=== PATIENT | female | born 1955 | race Caucasian/White ===

== ENCOUNTER 2025-04-06 10:53 | Outpatient (OUT) | payer MEDICARE, SELFPAY ==
--- OUTSIDE RECORDS SUMMARY | 2025-04-05 10:00 | XMS_ITS | Encounter Summary ---
Author Organization [facility] Address [address] [id number] Care Team Providers Care Window Caser Name Role Phone Isaias Small Primary Care Provider [phone] Source Comments In the event this information is protected by the Federal Confidentiality of Alcohol and Drug AbusePatient Records regulations: The Federal rules restrict any use of the information to criminally investigate or prosecute any alcohol or drug abuse patient.[facility] Reason for Visit * Reason Comments Follow Up Encounter Details Date Type Department Care Team (Latest Contact Info) Description 04/05/2025 10:00 AM EDT [facility] Colorectal Surgery [address] [id number] Loly Ribeiro APRN.[facility] [address] [facility], [facility] [place] [address] Dysuria (Primary Dx); Colostomy status (HCC); Encounter for change or removal of surgical wound dressing; Urinary tract infection without hematuria, site unspecified Social History Tobacco Use Types Packs/Day Years Used Date Smoking Tobacco: Never Smokeless Tobacco: Never Alcohol Use Standard Drinks/Week Comments Yes 0 (1 standard drink = 0.6 oz pur e alcohol) ocasionally [facility] Utilities Answer Date Recorded In the past 12 months has th e electric, gas, oil, or water company threatened to shut off services in your home? No 03/16/2025 Hunger Vital Sign Answer Date Recorded Within the past 12 months, y ou worried that your food would run out before you got the money to buy more. Never true 03/16/20 25 Within the past 12 months, t he food you bought just didn't last and you didn't have money to get more. Never true 03/16/2025 PRAPARE - Transportation Answer Date Re corded In the past 12 months, has l ack of transportation kept you from medical appointments or from getting medications? No 03/2025 In the past 12 months, has l ack of transportation kept you from meetings, work, or from getting things needed for daily living? No 03/16/2025 Housing Stability Vital Sign Answer Jose e Recorded In the last 12 months, was t here a time when you were not able to pay the mortgage or rent on time? No 03/16/2025 Number of Times Moved in the Last Year Not on fi le 03/16/2025 At any time in the past 12 m [facility], were you homeless or living in a retirement (including now)? No 03/16/2025 Area Deprivation Index Answer Date John rded National Score (1-100), lower number is lower ri sk 91 10/24/2024 State Score (1-10), lower number is lower risk 8 10/24/2024 Data from: https://www.neighborhoodatlas.medicine.[facility].edu/. Last address used for calculation [address] 10/24/2024 Comments No Sex and Gender Information Value Date Recorded Sex Assigned at Not on file Legal Sex Female 8:13 AM EST Gender Identity Not on file Sexual Orientation Not on file documented as of this encounter Patient Instructions * Patient Instructions* Loly Ribeiro APRN.RESEARCH AND EVALUATION MANAGER - 04/05/2025 4:11 PM EDT We discussed your urinary symptoms: - You reported symptoms of a possible urinary tract infection (UTI), including increased frequency of urination and burning. - I prescribed Macrodantin (Nitrofurantoin) 100 mg capsules. Please take 1 capsule twice daily for 5 days (10 capsules total). Be sure to take this medication with food. - I placed an order for a urinalysis (UA) in your MyChart. Please complete the UA before starting the antibiotics. After providing the urine sample, you may begin taking the Macrodantin. - The urinalysis results should be sent to our office. If the lab requires a fax number, they can send the results to [phone]. - If you experience worsening symptoms or do not feel better after completing the antibiotics, please contact our office. We discussed your wound care: - You mentioned that your wound near your belly button has improved, decreasing in depth from 4 cm to 3 cm. - Home health is monitoring your wound to ensure it does not become infected. - If additional home health visits are needed, your home health provider can request more visits and submit the necessary paperwork to your insurance. If they require a medical necessity statement from me, they can fax the request to [phone]. We discussed your stoma: - Your stoma looks healthy, and you reported emptying your colostomy bag twice daily. - Please continue monitoring your stoma and let us know if you notice any changes or concerns. Next steps: - Your prescription for Macrodantin has been sent to [facility] on [facility] in [place], [place]. - The urinalysis order has been uploaded to your MyChart. If you need assistance printing the orderor sending it to a lab, please let us know. - If you encounter any issues with the lab or need a better-quality copy of the order, message me through [employer], and I can reprint and fax it to the lab. Please let us know if you have any additional concerns or if your symptoms change. All the best, LOLY RIBEIRO APRN.CNP documented in this encounter Progress Notes * Loly Ribeiro APRN.CNP - 04/05/2025 9:56 AM EDT Images from the original note were not included. COLORECTAL SURGERY VIRTUAL VISIT FOLLOW UP Recording using [employer] software for draft documentation of the visit was discussed with the patient/authorized client service representative; all questions welcomed and answered. Patient/authorized client service representative agreed to proceed I have communicated my name and active licensure. The patient's identity and physical location wereverified at the time of this visit. Either the patient or their legal client service representative has been informed of the risks and benefits of -- and alternatives to -- treatment through a remote evaluation andconsents to proceed with the evaluation remotely. She cannot connect to video during later part of our visit. I had a virtual visit with Mrs. Mckoy today for follow up of hospitalization. ED for SBO 03/15/2025 UPDATED HISTORY: Negra Mckoy is a 69 year old female who presented to ED on 03/15/25 with SBO, managed by Dr. Myers. Adnexal mass s/p hysterectomy 07/20/24 c/b colon perf s/p ex lap, partial bowel resection, colostomy (07/25/24) complicated by recurrent pelvic abscesses, with IR drains, most recently removed in February. She feels as if she has UTI, more frequency and dysuria. Was on Augmentin. Colostomy active in AM, empties twice daily. She is currently under home health care for a healing wound near her umbilicus, which has improved from 4 cm to 3 cm in depth. She is requesting additional home health visits to monitor the wound andprevent infection. ROS: Genitourinary: (+) urinary frequency, (+) dysuria , no fever, chills, n/v PHYSICAL FINDINGS OF NOTE: observed stoma pink and viable to left upper abdomen with fresh pouch application pleasant and cooperative. Assessment Assessment & Diagnosis: Negra Mckoy is a 69 year old female Adnexal mass s/p hysterectomy 07/20/24 c/b colon perf s/pex lap, partial bowel resection, colostomy (07/25/24) complicated by recurrent pelvic abscesses, with IR drains here for follow up after hospitalization for sbo on 03/15/25. Data Reviewed: Tests & Documents Reviewed/ordered: Review of prior notes from ED notes Review of prior operative reports I have discussed Negra Mckoy's treatment plan and/or results with pt. Treatment plan: 1. Dysuria (R30.0) 2. Urinary tract infection without hematuria, site unspecified (N39.0) Acute dysuria and increased urinary frequency suggest a recurrent UTI; prior UTI treated with amoxicillin during recent hospitalization. - Ordered urinalysis with reflex to culture; instructed patient to obtain specimen prior to starting antibiotics. - Start Macrodantin 100 mg PO BID for 5 days; instructed to take with food. - Provided instructions for obtaining urinalysis and starting antibiotics after specimen collection. 3. Colostomy status (HCC) (Z93.3) Colostomy site visualized via video; stoma appears healthy with no signs of infection or complications. - Continue current colostomy care. 4. Encounter for change or removal of surgical wound dressing (Z48.01) Surgical wound near the umbilicus is healing, with depth reduced from 4 cm to 3 cm; home health is providing wound care and monitoring for infection. - Continue home health wound care. - Provided contact information for home health to request additional visits if needed. Risk of morbidity, mortality and/or complications of treatment plan: carlos a I spent a total of 25 minutes on the date of the service which included preparing to see the patient, [id number] patient care, completing clinical documentation, obtaining and/or reviewing separately obtained history, performing a medically appropriate examination, counseling and educating the pat ient/family/caregiver, ordering medications, tests, or procedures, and communicating results to thepatient/family/caregiver. LOLY RIBEIRO APRN.CNP [facility] [place] Colorectal Surgery [facility] [address] [place] [address] documented in this encounter Plan of Treatment Scheduled Orders Name Type Priority Associated Diagnoses Orde r Schedule URINALYSIS, WITH MICROSCOPIC Lab Routine Dysuria Expected: 04/05/2025, Expires: 07/05/2025 documented as of this encounter Visit Diagnoses Diagnosis Dysuria- Primary Colostomy status (HCC) Colostomy status Encounter for change or removal of surgical wound dressing Urinary tract infection without hematuria, site unspecified documented in this encounter Care Teams Window Caser Relationship Specialty Start Date End Date Isaias Small DO [address] [place] [address] PCP - General Family Medicine 01/02/16 documented as of this encounter
--- OUTSIDE RECORDS SUMMARY | 2025-04-06 11:08 | XMS_ITS | Encounter Summary ---
Author Organization [facility] Address [address] [place] [address] Care Team Providers Care Customer Marketing Intern Name Role Phone Isaias Small Primary Care Provider [phone] Source Comments In the event this information is protected by the Federal Confidentiality of Alcohol and Drug AbusePatient Records regulations: The Federal rules restrict any use of the information to criminally investigate or prosecute any alcohol or drug abuse patient.[facility] Encounter Details Date Type Department Care Team (Late st Contact Info) Description 01/18/2025 [place] [address] Provider, [facility] Regional Geodetic Advisor Enrollment Social History Tobacco Use Types Packs/Day Years Used Date Smoking Tobacco: Never Smokeless Tobacco: Never Alcohol Use Standard Drinks/Week Comments Yes 0 (1 standard drink = 0.6 oz pur e alcohol) ocasionally [facility] Utilities Answer Date Recorded In the past 12 months has e electric, gas, oil, or water company threatened to shut off services in your home? No 11/09/2024 Hunger Vital Sign Answer Date Recorded Within the past 12 months, y ou worried that your food would run out before you got the money to buy more. Never true 11/10/19 25 Within the past 12 months, t he food you bought just didn't last and you didn't have money to get more. Never true 11/09/2024 PRAPARE - Transportation Answer Date Re corded In the past 12 months, has l ack of transportation kept you from medical appointments or from getting medications? No 10/2024 In the past 12 months, has l ack of transportation kept you from meetings, work, or from getting things needed for daily living? No 11/09/2024 Housing Stability Vital Sign Answer Jose e Recorded In the last 12 months, was t here a time when you were not able to pay the mortgage or rent on time? No 11/09/2024 Number of Times Moved in the Last Year Not on fi le 11/09/2024 At any time in the past 12 m [facility], were you homeless or living in a fci (including now)? No 11/09/2024 Area Deprivation Index Answer Date John rded National Score (1-100), lower number is lower ri sk 91 10/24/2024 State Score (1-10), lower number is lower risk 8 10/24/2024 Data from: https://www.neighborhoodatlas.medicine.[facility].edu/. Last address used for calculation [address] 10/24/2024 Comments No Sex and Gender Information Value Date Recorded Sex Assigned at Not on file Legal Sex Female 8:13 AM EST Gender Identity Not on file Sexual Orientation Not on file documented as of this encounter Plan of Treatment Not on file documented as of this encounter Visit Diagnoses Not on filedocumented in this encounter Care Teams Customer Marketing Intern Relationship Specialty Start Date End Date Isaias Small DO [address] [place] [id number] PCP - General Family Medicine 01/02/16 documented as of this encounter
--- OUTSIDE RECORDS SUMMARY | 2025-04-06 11:08 | XMS_ITS | Encounter Summary ---
Author Organization [facility] Address [address] [place] [address] Care Team Providers Care Poultry Offal Icer Name Role Phone Isaias Small Primary Care Provider [phone] Source Comments In the event this information is protected by the Federal Confidentiality of Alcohol and Drug AbusePatient Records regulations: The Federal rules restrict any use of the information to criminally investigate or prosecute any alcohol or drug abuse patient.[facility] Encounter Details Date Type Department Care Team (Latest Contact Info) Description 03/29/2025 Travel Social History Tobacco Use Types Packs/Day Years Used Date Smoking Tobacco: Never Smokeless Tobacco: Never Alcohol Use Standard Drinks/Week Comments Yes 0 (1 standard drink = 0.6 oz pur e alcohol) ocasionally [facility] Utilities Answer Date Recorded In the past [...] any time in the past 12 m [facility], were you homeless or living in a intermediate (including now)? No 03/16/2025 Area Deprivation Index Answer Date John rded National Score (1-100), lower number is lower ri sk 91 10/24/2024 State Score (1-10), lower number is lower risk 8 10/24/2024 Data from: https://www.neighborhoodatlas.medicine.[facility].edu/. Last address used for calculation [address] [...] on filedocumented in this encounter Care Teams Poultry Offal Icer Relationship Specialty Start Date End Date Isaias Small DO [address] [place] [phone] PCP - General Family Medicine 01/02/16 documented as of this encounter
--- OUTSIDE RECORDS SUMMARY | 2025-04-06 11:08 | XMS_ITS | Encounter Summary ---
Author Organization [facility] Address [facility] [place] [address] Care Team Providers Care Heel Reducer Name Role Phone Pcp, No Primary Care Provider Isaias Christianson DO Primary Care Provider [phone] Source Comments In the event this information is protected by the Federal Confidentiality of Alcohol and Drug AbusePatient Records regulations: The Federal rules restrict any use of the information to criminally investigate or prosecute any alcohol or drug abuse patient.[facility] Encounter Details Date Type Department Care Team (Late st Contact Info) Description 07/03/2008 [facility] Orthopa[facility] [address] [address] Pee Davies PA-C [address] [place] [address] Social History Tobacco Use Types Packs/Day Years Used Date Smoking Tobacco: Never Alcohol Use Standard Drinks/Week Comments Not Asked 0 (1 standard drink = 0.6 oz pur e alcohol) Comments No Sex and Gender Information Value Date Recorded Sex Assigned at Not on file Legal Sex Female 8:13 AM EST Gender Identity Not on file Sexual Orientation Not on file documented as of this encounter Plan of Treatment Not on file documented as of this encounter Visit Diagnoses Not on filedocumented in this encounter Care Teams Heel Reducer Relationship Specialty Start Date End Date Pcp, No PCP - General 06/22/08 01/06/09 Isaias Small DO [address] [place] [address] PCP - General Family Medicine 01/02/16 documented as of this encounter
--- OUTSIDE RECORDS SUMMARY | 2025-04-06 11:08 | XMS_ITS | Encounter Summary ---
Author Organization [facility] Address [address] [place] [address] Care Team Providers Care Director Of Global Marketing Name Role Phone Isaias Small Primary Care Provider [phone] Source Comments In the event this information is protected by the Federal Confidentiality of Alcohol and Drug AbusePatient Records regulations: The Federal rules restrict any use of the information to criminally investigate or prosecute any alcohol or drug abuse patient.[facility] Encounter Details Date Type Department Care Team (Late st Contact Info) Description 01/18/2025 GI Preprocedure Call Gastroenterology [address] [place] [address] Linda King, MAGALIE Social History Tobacco Use Types Packs/Day Years Used Date Smoking Tobacco: Never Smokeless Tobacco: Never Alcohol Use Standard Drinks/Week Comments Yes 0 (1 standard drink = 0.6 oz pur e alcohol) ocasionally [facility] Utilities Answer Date Recorded In the past [...] any time in the past 12 m [facility], were you homeless or living in a prison (including now)? No 11/09/2024 Area Deprivation Index Answer Date John rded National Score (1-100), lower number is lower ri sk 91 10/24/2024 State Score (1-10), lower number is lower risk 8 10/24/2024 Data from: https://www.neighborhoodatlas.medicine.[facility].edu/. Last address used for calculation [address] 10/24/2024 Comments No Sex and Gender Information Value Date Recorded Sex Assigned at Not on file Legal Sex Female 8:13 AM EST Gender Identity Not on file Sexual Orientation Not on file documented as of this encounter Nursing Notes * Linda King, MAGALIE - 01/18/2025 11:53 AM EDT GI Pre-Procedure Spoke with patient: Yes Confirmed date scheduled and patient report time: Yes Procedure Planned:Colonoscopy with or without biopsies based on clinical findings Is the patient on blood thinners?no Procedure Instructions given to patient: Yes, and they verbalized their understanding of instructions given Patient instructed to take prescribed preparation prior to procedure:Yes, and they verbalized theirunderstanding of instructions given Patient instructed to have family/friend present for procedure transport home:Patient/patient support representative was told that if they do not have a responsible adult accompany them to their procedure; and remain in the endoscopy area until they are discharged; that their procedure cannot be done with s edation or anesthesia and may be cancelled. and They verbalized their understanding and agree to have a responsible adult accompany the patient to their procedure and remain in the endoscopy area. Any barriers to Patient learning: Patient/Patient Heat Sealing Machine Operator responded appropriately on phone. Type of instruction given: Verbal by telephone contact. Linda King RN documented in this encounter Plan of Treatment Not on file documented as of this encounter Visit Diagnoses Not on filedocumented in this encounter Care Teams Director Of Global Marketing Relationship Specialty Start Date End Date Isaias Small DO [address] [place] [phone] PCP - General Family Medicine 01/02/16 documented as of this encounter
--- OUTSIDE RECORDS SUMMARY | 2025-04-06 11:08 | XMS_ITS | Clinical Summary ---
Author Organization [facility] Address [address] [facility] [address] [place] [address] Care Team Providers Care Policy Writer Name Role Phone Grace Kenyon PA-C Primary Care Provide r Lillian Mays MD Unavailable Lizz Choudhury RN Unavailable Unava ilable Allergies Active Allergy Reactions Criticality Noted Date Comments Scopolamine Rash Medium 07/12/2024 Placed behind ear and developed a rash Medications losartan (COZAAR) 100 mg Oral Tablet Take 1 tablet every day by oral route. 2 Active hydroCHLOROthia zide (HYDRODIURIL) 25 mg Oral Tablet Take 2 Tablets (50 mg total) by mouth Once a day 2 Active buPROPion (WELLBUTRIN XL) 150 mg extended release 24 hr tablet Take 1 Tablet (150 mg total) by mouth Once a day 4 Active rosuvastatin (CRESTOR) 20 mg Oral Tablet Take 1 Tablet (20 mg total) by mouth Once a day 4 Active ZINC ORALIndications :supplement Take 1 Each by mouth Once a day Indications: supplement 4 Active glucosam/yolande-c ol.cplx/D3/C/Mn (AKFX-MBRZQG-ZV JJGMXF-A9-V-MN ORAL)Indication s:supplement Take 1 Each by mouth Once a day Indications: supplement 4 Active ondansetron (ZOFRAN) 4 mg Oral Tablet Take 1 Tablet (4 mg total) by mouth Every 8 hours as needed for Nausea/Vomiting 15 Tablet 07/21/2024 11:42 AM EST 4 Active Additional Information Patient not taking.Reported on 07/27/2024 HYDROcodone-stephanie taminophen (NORCO) 5-325 mg Oral Tablet Take 1 Tablet by mouth Every 4 hours as needed 5 Tablet 07/21/2024 11:42 AM EST 4 Active Additional Information Patient not taking.Reason: Other, Informant: Patient, Reported on 08/08/2024 cyclobenzaprine (FLEXERIL) 5 mg Oral Tablet Take 1 Tablet (5 mg total) by mouth Every 8 hours as needed for Muscle spasms 15 Tablet 08/01/2024 9:22 AM EST Active ferrous sulfate (FERATAB) 324 mg (65 mg iron) Oral Tablet, Delayed Release (E.C.) Take 1 Tablet (324 mg total) by mouth Every other day 30 Tablet 08/01/2024 9:22 AM EST Active docusate sodium (COLACE) 100 mg Oral CapsuleIndicati ons:constipatio n Take 100 mg by mouth Once per day as needed for Constipation. Indications: constipation Active Active Problems Problem Noted Date Diagnosed Date Post-operative wound abscess 07/25/2024 Post-operative state 07/20/2024 Pre-op evaluation 07/10/2024 SOB (shortness of breath) on exertion 07/10/2024 Hypertension 07/10/2024 Hyperlipidemia 07/10/2024 Gastroesophageal reflux disease 07/10/2024 Obesity 07/10/2024 Pelvic mass 07/10/2024 Encounters Date Type Department Care Team Description 01/08/2025 3:43 PM EDT - 01/08/2025 11:59 PM EDT Hospital Encounter [address] [address] Grace Kenyon PA-C Discharge Disposition: HOME PATIENT FAMILY MEMBER OTHER from Last 3 Months Family History Medical History Relation Name Comments No Known Problems Brother No Known Problems Daughter No Known Problems Father No Known Problems Maternal Aunt No Known Problems Maternal Grandfather No Known Problems Maternal Grandmother No Known Problems Maternal Uncle Cervical Cancer Mother No Known Problems Other No Known Problems Paternal Aunt No Known Problems Paternal Grandfather No Known Problems Paternal Grandmother No Known Problems Paternal Uncle No Known Problems Sister No Known Problems Son Relation Name Status Comments Brother Daughter Father Maternal Aunt Maternal Grandfather Maternal Grandmother Maternal Uncle Mother Other Paternal Aunt Paternal Grandfather Paternal Grandmother Paternal Uncle Sister Son Social History Tobacco Use Types Packs/Day Years Used Date Smoking Tobacco: Never Smokeless Tobacco: Never Tobacco Cessation:Counseling Given: Not Answered Alcohol Use Standard Drinks/Week Comments Yes 0 (1 standard drink = 0.6 oz pur e alcohol) occ OASIS D0700: Social Isolation Answer Da te Recorded Frequency of experiencing loneliness or isolatio n Never 08/21/2024 OASIS A1250: Transportation Answer Date Recorded Lack of Transportation (Medical) No 08/21/2024 Lack of Transportation (Non-Medical) No 08/21/2024 Patient Unable or Declines to Respond No 08/21/2024 OASIS B1300: Health Literacy Answer Jose e Recorded Frequency of needing help to read materials from doctor or pharmacy Never 08/21/2024 Social Connections Answer Date Recorded How often do you see or talk to people that you care about and feel close to? (For example: talking to friends on the phone, visiting friends or family, going to temple or club meetings) 5 or more times a week 07/31/2024 Health Literacy Answer Date Recorded How often do you have a prob ziggy understanding what is told to you about your medical condition? Never 07/31/2024 Comments No Sex and Gender Information Value Date Recorded Sex Assigned at Not on file Legal Sex Female 5:25 PM EST Gender Identity Not on file Sexual Orientation Not on file Last Filed Vital Signs Vital Sign Reading Time Taken Comments Blood Pressure 138/86 08/21/2024 12:45 PM EST Pulse 83 08/21/2024 12:45 PM EST Temperature 36.2 C (97.1 F) 08/21/2024 12:45 PM EST Respiratory Rate 18 08/21/2024 12:45 PM EST Oxygen Saturation 95% 08/21/2024 12:45 PM EST Inhaled Oxygen Concentration - - Weight 90.3 kg (199 lb 1.2 oz) 08/08/2024 12:57 PM EST Height 170.2 cm (5' 7 ) 08/08/2024 12:57 PM EST Body Mass Index 31.18 08/08/2024 12:57 PM EST Plan of Treatment Upcoming Encounters Date Type Department Care Team (Late st Contact Info) Description 06/08/2025 3:30 PM EDT Appointment Imaging Center, [facility] [address] [place] [address] Health Maintenance Due Date Last Done Comments Hepatitis C screening 1955 Pneumococcal Vaccination, Ag e 50+ (1 of 1 - PCV) 2005 RSV Adult 60+ or ( 1 - Risk 60-74 years 1-dose series) 2015 Covid-19 Vaccine ( - season) 2024 Medicare Annual Wellness Vis it - Calendar Year Insurers 08/09/2024 [facility] [employer] BILLING SPEC Capture Hidden 03/09/2025 Influenza Vaccine (#1) 2025 Depression Screening 07/26/2025 07/26/2024 Breast Cancer Screening 06/08/2026 06/08/2024, 10/20 Adult Tdap-Td (2 - Td or Tdap) 01/13/2034 01/14/2024 , 01/13/2024 Osteoporosis screening 02/03/2034 02/04/2024 Colonoscopy 07/12/2034 07/12/2024 Shingles Vaccine Completed 11/22/2023, 07/12/2023 Procedures Procedure Name Priority Date/Time Associated Diagnosis Comments WOUND, SUPERFICIAL/NON-STERI LE SITE, AEROBIC CULTURE AND GRAM STAIN Routine 01/08/2025 3:47 PM EDT Disruption or dehiscence of closure of internal operation (surgical) wound of abdominal wall muscle or fascia, initial encounter COLONOSCOPY Routine 07/12/2024 9:36 AM EST MAMMO BILATERAL SCREENING W SHEELA-ADDL VIEWS/BREAST US REQ BY RAD Routine 06/08/2024 3:40 PM EDT Encounter for screening mammogram for malignant neoplasm of breast DEXA BONE DENSITOMETRY Routine 02/04/2024 1:23 PM EDT Encounter for screening for osteoporosis Asymptomatic menopausal state from Last 3 Months or Most Recently Relevant to Health Maintenance Results * (ABNORMAL) WOUND, SUPERFICIAL/NON-STERILE SITE, AEROBIC CULTURE AND GRAM STAIN (01/08/2025 3:47 PM EDT) WOUND CULTURE 1+ Rare Multiple Gram Positive and Gram Negative Organisms(A) 01/12/2025 8:58 AM EDT [facility] GRAM STAIN No PMNs 01/12/2025 8:58 AM EDT [facility] GRAM STAIN No Organisms Seen 01/12/2025 8:58 AM EDT [facility] Other SPECIMEN FROM WOUND / Unknown 01/08/2025 3:47 PM EDT 01/09/2025 6:40 PM EDT Grace Kenyon PA-C LAB-MICROBIOLOGY - GE NERAL ORDERABLES Final Result Performing Organization Address City/State/[facility] Co de Phone Number [facility] [place] [address] * COLONOSCOPY (07/12/2024 9:36 AM EST) 07/12/2024 9:36 AM EST Narrative [facility] ENDOPRO - 07/12/2024 10:16 AM EST Procedure Date: 07/12/2024 Patient Name: Negra Mckoy Date of : 1955 Admit Type: Outpatient Room: [facility] 03 Gender: Female Age: 69 Attending MD: NEY HARP DO, Instrument Name: [id number] Procedure: Colonoscopy Providers: NEY HARP DO, Rocio Larson, DONNA (Anesthesia Staff) Referring MD: Grace Kenyon Indications: Abnormal CT of the GI tract Medicines: Monitored Anesthesia Care Procedure: Pre-Anesthesia Assessment: - Prior to the procedure, a History and Physical was performed, and patient medications, allergies and sensitivities were reviewed. The patient's tolerance of previous anesthesia was reviewed. - The risks and benefits of the procedure and the sedation options and risks were discussed with the patient. All questions were answered and informed consent was obtained. After I obtained informed consent, the scope was passed under direct vision. Throughout the procedure, the patient's blood pressure, pulse, and oxygen saturations were monitored continuously. The Colonoscope was introduced through the anus with the intention of advancing to the cecum. The scope was advanced to the rectum before the procedure was aborted. Medications were not given. The colonoscopy was extremely difficult due to a tortuous colon. Successful completion of the procedure was aided by changing the patient to a supine position. Findings: The perianal and digital rectal examinations were normal. Pertinent negatives include normal sphincter tone, no palpable rectal lesions and no anal lesion or abnormality. The recto-sigmoid colon was grossly tortuous. Advancing the scope required changing the patient to a supine position. Advancing the scope required withdrawing the scope and replacing with the endoscope. Estimated Blood Loss: Estimated blood loss: none. Complications: No immediate complications. Estimated blood loss: None. Impression: - Tortuous colon. - No specimens collected. Recommendation: - Patient has a contact number available for emergencies. The signs and symptoms of potential delayed complications were discussed with the patient. Return to normal activities tomorrow. Written discharge instructions were provided to the patient. - Discharge patient to home (ambulatory). - Repeat colonoscopy in 1 year for screening purposes. Procedure Code(s): --- Professional --- 24318, 53, Colonoscopy, flexible; diagnostic, including collection of specimen(s) by brushing or washing, when performed (separate procedure) CPT copyright 2022 [employer]. All rights reserved. The codes documented in this report are preliminary and upon carbonation equipment operator review may be revised to meet current compliance requirements. Ney BRYANT DO 07/12/2024 10:16:29 AM This report has been signed electronically by:NEY HARP DO Number of Addenda: [address] [place] [id number] Ney Harp DO ENDOPRO GI INTERFACE Final R esult [facility] * MAMMO BILATERAL SCREENING W SHEELA-ADDL VIEWS/BREAST US REQ BY RAD (06/08/2024 3:40 PM EDT) Anatomical Region Laterality Modality Breast, WTZ, [facility], CCM, UHC, PVH, STJ, RMH, BRX, SMR, BMC, JMC, JOANNA, UTN, WHL, HRS, BRN, PRN Bilateral Mammography Impressions 06/08/2024 6:59 PM EDT Follow up mammogram in 1 year is recommended for both breasts. BI-RADS ATLAS category (overall): 2 - Benign A negative x-ray should not delay biopsy if a dominant or clinically suspicious mass is present. 4-8% of cancers are not identified by x-ray. A negative report may reinforce clinical impression. Adenosis and dense breasts may obscure an underlying neoplasm. False positive reports average 6-10%. [facility] [address] Radiologist location ID: [id number] Narrative 06/08/2024 6:59 PM EDT Computer aided detection (CAD) technology has been applied to the standard (CC and MLO) images. 3D tomosynthesis and 2D images were acquired and reviewed. FILMS COMPARED: Compared to: 06/07/2023 US BREAST LEFT-ADDL VIEWS/BREAST US REQ BY RAD, 11/30/2022 US BREAST LEFT-ADDL VIEWS/BREAST US REQ BY RAD, 11/30/2022 US BREAST RIGHT-ADDL VIEWS/BREAST US REQ BY RAD, 10/20/2022 MM GRACE BUS SCREEN MAMMOGRAM, 08/21/2021 EXTERNAL MAMMOGRAM COMPARISON IMAGES, 08/19/2020 EXTERNAL MAMMOGRAM COMPARISON IMAGES, and 07/18/2019 EXTERNAL MAMMOGRAM COMPARISON IMAGES HISTORY: Procedure: MAMMO BILATERAL SCREENING W SHEELA-ADDL VIEWS/BREAST US REQ BY RAD Reason for exam: Encounter for screening mammogram for malignant neoplasm of breast FINDINGS: The breasts are heterogeneously dense, which may obscure small masses. Bilateral There is no evidence of suspicious masses, calcifications, or other abnormal findings. Similar oval asymmetries are present in both breasts most consistent with multiple benign cysts. Few scattered benign-appearing calcifications are again seen. us Grace Kenyon PA-C MAMMO ORDERABLES Arleth l Result * DEXA BONE DENSITOMETRY (02/04/2024 1:23 PM EDT) Anatomical Region Laterality Modality Dexa, WTZ, BONE, [facility], CCM, U HC, PVH, STJ, RMH, BRX, SMR, BMC, JMC, JOANNA, UTN, WHL, HRS Other Impressions 02/04/2024 1:30 PM EDT Normal. Radiologist location ID: [id number] Narrative 02/04/2024 1:30 PM EDT Table formatting from the original result was not included. Region BMD (g/cm ) Young Adult T-score Age Matched Z-score AP Spine 1.567 3.0 4.7 Left Hip total 1.126 0.9 2.3 Left Hip Femoral Neck 1.031 -0.1 1.6 Right Hip total 1.155 1.2 2.6 Right Hip Femoral Neck 1.075 0.3 1.9 N/A Forearm N/A Forearm World Health Organization (WHO) criteria for post-menopausal, Women: Normal: T-score at or above -1 SD Osteopenia: T-score between -1 and -2.5 SD Osteoprosis: T-score at or below -2.5 SD FRAX* Results: 10-Year Probability of Fracture Major Osteoporotic Fracture 6.8% Hip Fracture 0.3% *FRAX is a trademark of the [employer]'s [employer] for Metabolic Bone Disease, a World Health Organization (WHO) Collaborating [place]. 1-The 10-year probability of fracture may be lower than reported if the patient has received treatment. 2-Major Osteoporotic Fracture: Clinical Spine, Forearm, Hip or Shoulder. Although these definitions are necessary to establish the prevalence of Osteoporosis, they should not be used as the sole determinant of treatment decisions. New International Society of Clinical Densitometry (ISCD) guidelines for premenopausal patients under the age of 50, specify that the T-Score will no longer be generated. The impression will be based on the reference curve, which is derived from the BMD. us Grace Kenyon PA-C MAMMO ORDERABLES Arleth l Result from Last 3 Months or Most Recently Relevant to Health Maintenance Insurance [employer]VANTAGE [employer] MEDICARE ADVANTAGE Advance Directives For more information, please contact: [phone] * Full Code (Latest Code Status on File) Date Activated Date Inactivated Comments 08/04/2024 6:20 PM * FULL CODE: ATTEMPT RESUSCITATION/CPR Date Activated Date Inactivated Comments 07/25/2024 7:55 AM 08/01/2024 2:51 PM Patient wi shes for full ICU level care including advanced airway interventions / mechanical ventilation. In the event of pulseless cardiac arrest, patient consents to ACLS (advanced cardiac life support) to attempt resuscitation. IE - Consents to chest compressions, life support including intubation, mechanical ventilation, defibrillation/cardioversion as indicated. * FULL CODE: ATTEMPT RESUSCITATION/CPR Date Activated Date Inactivated Comments 07/20/2024 4:50 PM 07/21/2024 5:19 PM Patient wi shes for full ICU level care including advanced airway interventions / mechanical ventilation. In the event of pulseless cardiac arrest, patient consents to ACLS (advanced cardiac life support) to attempt resuscitation. IE - Consents to chest compressions, life support including intubation, mechanical ventilation, defibrillation/cardioversion as indicated. Care Teams Policy Writer Relationship Specialty Start Date End Date Grace Kenyon PA-C [address] [place] [address], [place] [address] PCP - General PHYSICIAN PHYSICAL THERAPIST 02/04/24 Lillian Mays MD [address] [place] [address] [address] MERLY MACKEY [address] [place], [place] [id number] Gynecologic Oncologist GYNECOLOGICAL-ONCOLOG Y 05/23/24 Lizz Choudhury, language arts teacher Nurse Navigator GYNECOLOGICAL-ONCOLOG Y 05/23/24
--- OUTSIDE RECORDS SUMMARY | 2025-04-06 11:08 | XMS_ITS | Encounter Summary ---
Author Organization [facility] Address [address] [id number] Care Team Providers Care Stock Mixer Name Role Phone Pcp, No Primary Care Provider Unavailabl e Pcp, No Primary Care Provider Unavailabl e Isaias Small DO Primary Care Provider [phone] Source Comments In the event this information is protected by the Federal Confidentiality of Alcohol and Drug AbusePatient Records regulations: The Federal rules restrict any use of the information to criminally investigate or prosecute any alcohol or drug abuse patient.[facility] Encounter Details Date Type Department Care Team (Late st Contact Info) Description 04/23/2008 Patient Msg Medical Records [address] [place] [address] Provider, Cc Patient Registration Social History Tobacco Use Types Packs/Day Years Used Date Smoking Tobacco: Never Assessed Comments No Sex and Gender Information Value Date Recorded Sex Assigned at Not on file Legal Sex Female 8:13 AM EST Gender Identity Not on file Sexual Orientation Not on file documented as of this encounter Plan of Treatment Not on file documented as of this encounter Visit Diagnoses Not on filedocumented in this encounter Care Teams Stock Mixer Relationship Specialty Start Date End Date Pcp, No PCP - General 06/22/08 01/06/09 Pcp, No PCP - General 10/31/07 06/08/08 Isaias Small DO [address] [place] [address] PCP - General Family Medicine 01/02/16 documented as of this encounter
--- OUTSIDE RECORDS SUMMARY | 2025-04-06 11:08 | XMS_ITS | Encounter Summary ---
Author Organization [facility] Address [address] [place] [address] Care Team Providers Care Director Student Union Name Role Phone Isaias Small DO Primary Care Provider [phone] Source Comments In the event this information is protected by the Federal Confidentiality of Alcohol and Drug AbusePatient Records regulations: The Federal rules restrict any use of the information to criminally investigate or prosecute any alcohol or drug abuse patient.[facility] Encounter Details Date Type Department Care Team (Late st Contact Info) Description 2020 [place] [address] Provider, Ccf Medicare Coverage of Physical Exams Social History Tobacco Use Types Packs/Day Years [...] filedocumented in this encounter Care Teams Director Student Union Relationship Specialty Start Date End Date Isaias Small DO [address] [place] [address] PCP - General Family Medicine 01/02/16 documented as of this encounter
--- OUTSIDE RECORDS SUMMARY | 2025-04-06 11:08 | XMS_ITS | Encounter Summary ---
Author Organization [facility] Address [facility] [id number] Care Team Providers Care Wire Mesh Filter Fabricator Name Role Phone Isaias Small Primary Care Provider [phone] Source Comments In the event this information is protected by the Federal Confidentiality of Alcohol and Drug AbusePatient Records regulations: The Federal rules restrict any use of the information to criminally investigate or prosecute any alcohol or drug abuse patient.[facility] Encounter Details Date Type Department Care Team (Late st Contact Info) Description 04/05/2025 Patient Msg Colorectal Surgery [address] [phone] Loly Courtney APRN.[facility] [address] [facility]. [place] [phone] requistionnnnn Social History Tobacco Use Types Packs/Day Years Used Date Smoking Tobacco: Never Smokeless Tobacco: Never Alcohol Use Standard Drinks/Week Comments Yes 0 (1 standard drink = 0.6 oz pur e alcohol) ocasionally [facility] Utilities Answer Date Recorded In the past 12 months has [employer], gas, oil, or water [employer] threatened to shut off services in your [...] any time in the past 12 m [facility], were you homeless or living in a usp (including now)? No 03/16/2025 Area Deprivation Index Answer Date John rded National Score (1-100), lower number is lower ri sk 91 10/24/2024 State Score (1-10), lower number is lower risk 8 10/24/2024 Data from: https://www.neighborhoodatlas.medicine.[facility].edu/. Last address used for calculation [address] [...] on filedocumented in this encounter Care Teams Wire Mesh Filter Fabricator Relationship Specialty Start Date End Date Isaias Small DO [address] [place] [address] PCP - General Family Medicine 01/02/16 documented as of this encounter
--- OUTSIDE RECORDS SUMMARY | 2025-04-06 11:08 | XMS_ITS | Encounter Summary ---
Author Organization [facility] Address [address] [place] [address] Care Team Providers Care Forensic Audit Expert Name Role Phone Pcp, No Primary Care Provider Unavailabl e Pcp, No Primary Care Provider Unavailabl e Isaias Small DO Primary Care Provider [phone] Source Comments In the event this information is protected by the Federal Confidentiality of Alcohol and Drug AbusePatient Records regulations: The Federal rules restrict any use of the information to criminally investigate or prosecute any alcohol or drug abuse patient.[facility] Encounter Details Date Type Department Care Team (Late st Contact Info) Description 04/23/2008 Patient Msg Medical Records [address] [phone] Provider, Ccf RE: Patient Registration Completed Social History Tobacco Use Types Packs/Day Years [...] on filedocumented in this encounter Care Teams Forensic Audit Expert Relationship Specialty Start Date End Date Pcp, No PCP - General 06/22/08 01/06/09 Pcp, No PCP - General 10/31/07 06/08/08 Isaias Small DO [address] [place] [id number] PCP - General Family Medicine 01/02/16 documented as of this encounter
--- OUTSIDE RECORDS SUMMARY | 2025-04-06 11:08 | XMS_ITS | Encounter Summary ---
Author Organization [facility] Medicine Address [address] [facility] [place] [address] Care Team Providers Care Cradle Slide Maker Name Role Phone Grace Kenyon PA-C Primary Care Provide r Lillian Mays MD Unavailable Lizz Choudhury RN Unavailable Unava ilable Encounter Details Date Type Department Care Team (Late st Contact Info) Description 07/24/2024 [facility] Discharge follow-up Hematology/Oncology, Micaela Sheldon [facility] [address] [place] [place], [place] [id number] Mily Martinez APRN,DINING ROOM HOSTESS-BC [address] [place] [address] [place] [address] Social History Tobacco Use Types Packs/Day Years Used Date Smoking Tobacco: Never Smokeless Tobacco: Never Alcohol Use Standard Drinks/Week Comments Yes 0 (1 standard drink = 0.6 oz pur e alcohol) occ Health Literacy Answer Date Recorded How often do you have a prob ziggy understanding what is told to you about your medical condition? Never 07/05/2024 Comments No Sex and Gender Information Value Date Recorded Sex Assigned at Not on file Legal Sex Female 5:25 PM EST Gender Identity Not on file Sexual Orientation Not on file documented as of this encounter Functional Status * Deaf or serious difficulty hearing? Answer Date of Assessment Author No 07/20/2024 9:48 AM EST Dominique Triana ST * Blind or serious difficulty seeing even with glasses? Answer Date of Assessment Author No 07/20/2024 9:48 AM EST Triana , Brittainy K, ST * Serious difficulty walking/climbing stairs? Answer Date of Assessment Author No 07/20/2024 9:48 AM EST Triana Brittainy K, ST * Difficulty dressing or bathing? Answer Date of Assessment Author No 07/20/2024 9:48 AM EST Triana , Brittainy K, ST * Has difficulty doing errands because of physical, mental or emotional condition? Answer Date of Assessment Author No 07/20/2024 9:48 AM EST Triana , Brittainy K, ST documented as of this encounter Mental Status * Has serious difficulty concentrating, remembering or making decisions because of physical, mental or emotional condition ? Answer Entry Date Author No 07/20/2024 9:48 AM EST Triana Shawnatainy K, ST documented in this encounter Plan of Treatment Upcoming Encounters Date Type Department Care Team (Late st Contact Info) Description 06/08/2025 3:30 PM EDT Appointment Imaging [facility], [address] [phone] documented as of this encounter Visit Diagnoses Not on filedocumented in this encounter Care Teams Cradle Slide Maker Relationship Specialty Start Date End Date Grace Kenyon PA-C [address] [place] [id number] PCP - General PHYSICIAN CRISIS THERAPIST 02/04/24 Lillian Mays MD [address] [place] [address] [address] MERLY MACKEY [address] [place] [address] Gynecologic Oncologist GYNECOLOGICAL-ONCOLOG Y 05/23/24 Lizz Choudhury, legal analyst Nurse Navigator GYNECOLOGICAL-ONCOLOG Y 05/23/24 documented as of this encounter
--- OUTSIDE RECORDS SUMMARY | 2025-04-06 11:08 | XMS_ITS | Encounter Summary ---
Author Organization [facility] Medicine Address [address] [facility] [place] [address] Care Team Providers Care Answering Service Telephone Operator Name Role Phone Grace Kenyon PA-C Primary Care Provide r Lillian Mays MD Unavailable Lizz Choudhury RN Unavailable Unava ilable Encounter Details Date Type Department Care Team (Late st Contact Info) Description 07/17/2024 Nurse Triage General Surgery, Physician Office Building [address] [place] [phone] Ney Sanchez, [address] [address] Social History Tobacco Use Types Packs/Day Years [...] hearing? Answer Date of Assessment Author No 07/12/2024 7:49 AM Gayle Gloria RN * Blind or serious difficulty seeing even with glasses? Answer Date of Assessment Author No 07/12/2024 7:49 AM Gayle Gloria RN * Serious difficulty walking/climbing stairs? Answer Date of Assessment Author No 07/12/2024 7:49 AM EST Gayle Wilson RN * Difficulty dressing or bathing? Answer Date of Assessment Author No 07/12/2024 7:49 AM Gayle Gloria RN * Has difficulty doing errands because of physical, mental or emotional condition? Answer Date of Assessment Author No 07/12/2024 7:49 AM EST Gayle Wilson RN documented as of this encounter Mental Status * Has serious difficulty concentrating, remembering or making decisions because of physical, mental or emotional condition ? Answer Entry Date Author No 07/12/2024 7:49 AM Gayle Gloria RN documented in this encounter Miscellaneous Notes * Telephone Encounter - Krys Fernandez RN - 07/17/2024 9:03 AM EST Regarding: Refill Request ----- Message from Jenise Sumner sent at 07/17/2024 8:40 AM EST ----- Copied From [facility] #[id number].NEGRA BURT called to request a prescription refill. Mays Pt Pt is asking that polyethylene glycol (MIRALAX) 17 gram/dose Oral Powder be called in for her as she is having a procedure upcoming. Preferred Pharmacy [facility]/pharmacy #[id number] - [place], [place] - [address] [address] Hours: Not open 24 hours Thank you documented in this encounter Plan of Treatment Upcoming Encounters Date Type Department Care Team (Late st Contact Info) Description 06/08/2025 3:30 PM EDT Appointment Imaging Center, [facility] [address] [place] [address] documented as of this encounter Visit Diagnoses Not on filedocumented in this encounter Care Teams Answering Service Telephone Operator Relationship Specialty Start Date End Date Grace Kenyon PA-C [address] [place] [id number] PCP - General PHYSICIAN CAR CUSTOMIZER 02/04/24 Lillian Mays MD [address] [place] [address] [address] MERLY MACKEY [address] [place] [address] Gynecologic Oncologist GYNECOLOGICAL-ONCOLOG Y 05/23/24 Lizz Choudhury, shell machine operator Nurse Navigator GYNECOLOGICAL-ONCOLOG Y 05/23/24 documented as of this encounter
[2025-04-06 13:08] LABS: Anion Gap 12.7; Blood Urea Nitrogen 18.0 mg/dL (7.0-18.0); Calcium 9.1 mg/dL (8.5-10.1); Carbon Dioxide 28.3 mmol/L (21.0-32.0); Chloride 103 mmol/L (98-107); Cholesterol 166 mg/dL (<=200); Estimated GFR (African America >60 (>=60 mL/min/1.73m^2); Estimated GFR (Non-African Ame >60 (>=60 mL/min/1.73m^2); Glucose 98 mg/dL (74-106); HDL Cholesterol 66 mg/dL (40-60); Potassium 4.0 mmol/L (3.5-5.1); Sodium 140 mmol/L (136-145); Triglycerides 99 mg/dL (<=150); VLDL CHOLESTEROL 19.8 mg/dL
== END 2025-04-06 10:54 | disposition home or self-care (01) ==
LOC: LAB 11:06
PROVIDERS: PCP Family Medicine; Visit Provider Family Medicine
DX: R73.9 Hyperglycemia, unspecified (principal); E87.6 Hypokalemia; E78.5 Hyperlipidemia, unspecified; R30.0 Dysuria
CPT/HCPCS: 36415; 80048; 80061; 81001; 83036

== ENCOUNTER 2025-04-06 11:11 | Outpatient (OUT) | payer MEDICARE, SELFPAY ==
[2025-04-06 11:53] LABS: Glucose Urine UA NEGATIVE (NEGATIVE)
[2025-04-06 12:00] LABS: Cast Seen? NONE SEEN #/LPF (NONE SEEN); Crystals Seen? None Seen #/HPF (None Seen)
== END 2025-04-06 11:12 | disposition home or self-care (01) ==
PROVIDERS: PCP Family Medicine; Visit Provider Nurse Practitioner
DX: R30.0 Dysuria (principal)
CPT/HCPCS: 81001